=== PATIENT | female | born 2000 | race Caucasian/White ===

== ENCOUNTER 2022-09-26 13:22 | Outpatient (CLI) | payer MEDICAID, SELFPAY | END 2022-09-26 13:23 | disposition home or self-care (01) | PROVIDERS: PCP Physician Assistant Medical; Visit Provider Nurse Practitioner Family | DX: R21 Rash and other nonspecific skin eruption (principal) | CPT/HCPCS: 86617; 86618 ==

== ENCOUNTER 2023-09-05 10:45 | Outpatient (CLI) | payer MEDICAID, SELFPAY ==
[2023-09-05 11:10] LABS: Bacteria Urine Moderate; Mucus Urine Few; Squamous Epithelial Cell Urine Few (None-Few)
== END 2023-09-05 10:46 | disposition home or self-care (01) ==
LOC: NFLDUCREF 11:07
PROVIDERS: PCP Physician Assistant Medical; Visit Provider Physician Assistant
DX: N39.0 Urinary tract infection, site not specified (principal)
CPT/HCPCS: 81015; 87086

== ENCOUNTER 2024-03-24 12:41 | Emergency (ER) | payer MEDICAID, SELFPAY ==
[2024-03-24 13:07] VITALS: BP 131/93; PULSE 98; RESP 18; TEMP 37.2; O2SAT 100; BMI 23.6
--- NOTE | 2024-03-24 14:51 | CRLHL7_ITS ---
For Patients: As a result of the Cures Act, medical imaging exams and procedure reports are released immediately into your electronic medical record. You may view this report before your referring provider. If you have questions, please contact your health care provider. INDICATION: : Glass in hand TECHNIQUE: Two views left hand COMPARISON: None FINDINGS: No fracture. Normal joint alignment. Normal bone mineral content. There is a very subtle slightly angular densities in the thenar eminence that could be embedded glass. No metallic foreign body. IMPRESSION: Possible glass at the left thenar soft tissues. Dictated by Alexus Ayala MD @ 03/24/2024 3:23:50 PM (Electronically Signed)
--- NOTE | 2024-03-24 14:53 | ED_ITS ---
HPI - Wound/Laceration General Chief Complaint: Laceration/Wound Stated Complaint: L hand lac, glass lodged hand Time Seen by Provider: 03/24/24 14:17 History of Present Illness HPI narrative: This 23-year-old female comes in with an injury to her left hand. She states that she tripped and fell into some glass and the grass broke causing a laceration to her left thumb. She thinks that she has some glass in her hand at various places. She does not report any other injury. Her last tetanus vaccination was 10 years ago. Related Data Home Medications ?Medication ?Instructions ?Recorded ?Confirmed norelgestromin 150 mcg-e.estradiol patch transdermal 09/26/22 09/26/22 35 mcg/24 hr weekly transderm patch (Xulane) Allergies Allergy/AdvReac Type Severity Reaction Status Date / Time ceftriaxone [From Rocephin] Allergy Intermediate Verified 09/05/23 11:01 iodine Allergy Verified 03/24/24 13:11 shell fish Allergy Uncoded 03/24/24 13:11 Review of Systems Status of ROS: Reports: 10 or more systems reviewed and unremarkable except as noted in History and below Narrative: Constitutional: No fevers, no weight gain or loss. Eyes: No discharge. No vision changes. HENT: No congestion, no sore throat, no ear pain. Cardiovascular: No chest pain, no palpitations. Respiratory: No shortness of breath, no wheezes, no cough. Gastrointestinal: No abdominal pain, no vomiting, no diarrhea. Genitourinary: No dysuria, no hematuria. Musculoskeletal: Normal range of motion. Skin: No rashes, no pruritis. Neurological: No dizziness, weakness, sensory change, speech change. Endo/Heme/Allergies: No bruising or bleeding. No polydipsia. Pysch: no suicidality, no anxiety, no insomnia. All other systems reviewed and are negative. [facility] Medical History Lyme disease, acute ?A69.20 - Lyme disease, unspecified (ICD-10) Rash ?R21 - Rash and other nonspecific skin eruption (ICD-10) Social History Smoking Status: Never smoker How often do you have a drink containing alcohol: never AUDIT-C Alcohol total score: 0 Non-prescribed substance use: marijuana (any form) Exam Narrative: Exam Narrative: Constitutional: Well-developed, well-nourished, no acute distress. HEENT: Normocephalic, atraumatic. Neck: Normal range of motion. Nontender. Supple. Heart: Regular. No murmurs. Normal rate. Intact distal pulses. Lungs: Clear to auscultation. No chest discomfort. No wheezes, rhonchi, or rales. Abdomen: Normal bowel sounds. Nontender. No rebound tenderness. Genitalia: Deferred. Back: No midline tenderness. Normal range of motion. Extremities: Normal range of motion. 2 cm linear laceration over the MP joint of the left thumb on the radial aspect of that joint. She has a tender area with a small shard of glass in the left index finger. Skin: Intact. No rash. Warm. No erythema or pallor. Neurologic: No altered sensation. No weakness. Alert and oriented. Psychiatric: No suicidality. No anxiety or depression. No insomnia. Nursing notes and vitals signs are reviewed. Const: Vital Signs, click to edit/add: Vital Signs - 24 hr 03/24/24 13:07 Temperature 98.9 F Pulse Rate [Left P ulse Oximeter] 98 Respiratory Rate 18 Blood Pressure [Ri ght Upper Arm] 131/93 H Pulse Oximetry 100 Oxygen Delivery Me thod Room Air Course Vital Signs Vital signs: Initial Vital Signs Temperature 98.9 F 03/24/24 13:07 Temperature Source Temporal Artery Scan 03/24/24 13:07 Pulse Rate 98 03/24/24 13:07 Pulse Rhythm Regular 03/24/24 13:07 Pulse Strength 3+ Normal 03/24/24 13:07 Respiratory Rate 18 03/24/24 13:07 Blood Pressure 131/93 H 03/24/24 13:07 Blood Pressure Mean 105 03/24/24 13:07 Blood Pressure Position Sitting 03/24/24 13:07 Pulse Oximetry 100 03/24/24 13:07 Oxygen Delivery Method Room Air 03/24/24 13:07 Vital Signs Temperature 98.9 F 03/24/24 13:07 Pulse Rate 98 03/24/24 13:07 Respiratory Rate 18 03/24/24 13:07 Blood Pressure 131/93 H 03/24/24 13:07 Pulse Oximetry 100 03/24/24 13:07 Oxygen Delivery Method Room Air 03/24/24 13:07 Temperature 98.9 F 03/24/24 13:07 Pulse Rate 98 03/24/24 13:07 Respiratory Rate 18 03/24/24 13:07 Blood Pressure 131/93 H 03/24/24 13:07 Pulse Oximetry 100 03/24/24 13:07 Oxygen Delivery Method Room Air 03/24/24 13:07 MDM - Wound/Laceration MDM Narrative Medical decision making narrative: This patient comes in with her injury to her left hand. She believes that there is some glass in the wound. An x-ray is obtained and shows no sign of foreign object. She does have a very small sliver of glass in her left index finger that is palpable. I was able to remove this with the pickups. The 2 cm wound on her left thumb was anesthetized using 1% lidocaine. I explored the wound to its base and then repaired it using 5.0 Ethilon suture. Five sutures were placed in interrupted fashion. Instructions regarding wound care were given. Discharge Plan Discharge Clinical Impression: Laceration Patient Disposition: Home, Self-Care Condition: Stable Additional Instructions: Keep wound clean and dry. Return to clinic or urgent care in 7-10 days for suture removal. Prescriptions: No Action Xulane 150-35 mcg/24 hr patch weekly transdermal Patient Comments: Apply 1 Patch on dry, clean, hairless skin once weekly Follow Up/Referrals: Temi Nemwan PA-C [Primary Care Provider] - Stand Alone Forms: [facility] Info Instructions
[2024-03-24] MEDS: TETANUS/DIPHTH/PERTUSSIS 0.5 ML SYRINGE IM (16:02)
== END 2024-03-24 16:11 | disposition home or self-care (01) ==
PROVIDERS: Emergency Provider Emergency Medicine Emergency Medical Services; PCP Physician Assistant Medical
DX: S61.412A Laceration without foreign body of left hand, initial encounter (principal); W01.110A Fall on same level from slipping, tripping and stumbling with subsequent striking against sharp glass, initial encounter
CPT/HCPCS: 12001; 73120; 90471; 90715; 99284